=== PATIENT | female | born 1970 | race Hispanic/Latino ===

== ENCOUNTER 2019-12-28 20:23 | Emergency (ER) | payer BC, OTHER ==
[~2019-12-28] VITALS: Ht 162.6 cm; Wt 70.8 kg
== END 2019-12-28 22:02 | disposition home or self-care (01) ==
LOC: FSED 20:23
DX: R07.89 Other chest pain (principal); Z87.19 Personal history of other diseases of the digestive system
CPT/HCPCS: 80053; 82553; 84484; 85025; 93005; 99283

== ENCOUNTER → 2020-08-24 | Outpatient (CLI) | payer BC ==
--- NOTE | 2020-08-24 13:03 | Diagnostic Imaging Report ---
EXAMINATION: KNEE THREE VIEWS BILATERAL INDICATION: Bilateral knee pain COMPARISON: None FINDINGS: AP, oblique, and lateral images of both knees were obtained. Left knee: No acute fracture or dislocation. Alignment is anatomic. Multifocal metallic foreign bodies along the medial and posterior medial aspect of the knee and mild tricompartmental degenerative changes. Small suprapatellar joint effusion. Right knee: No acute fracture or dislocation. Alignment is anatomic. No substantial degenerative change or joint effusion. Soft tissues appear unremarkable. IMPRESSION: No acute osseous injury of either knee. Multifocal metallic foreign bodies along medial left knee soft tissues. Small left suprapatellar joint effusion and mild left knee tricompartmental degenerative changes. Signed by: Ganesh Hernandez MD on 08/24/2020 12:59 PM
== END ==
LOC: RAD 11:15
DX: M25.561 Pain in right knee (principal); M25.562 Pain in left knee

== ENCOUNTER 2020-10-14 11:15 | Outpatient (RCR) | payer BC | END 2020-10-24 | LOC: PT 11:15 | PROVIDERS: ATTEND Specialist | DX: M17.0 Bilateral primary osteoarthritis of knee (principal); M22.2X2 Patellofemoral disorders, left knee; M22.2X1 Patellofemoral disorders, right knee; M62.81 Muscle weakness (generalized); M25.562 Pain in left knee ==

== ENCOUNTER 2020-11-08 07:00 | Outpatient (RCR) | payer BC | END 2020-11-24 | LOC: PT 07:00 | PROVIDERS: ATTEND Specialist | DX: M22.2X1 Patellofemoral disorders, right knee (principal); M22.2X2 Patellofemoral disorders, left knee; M17.0 Bilateral primary osteoarthritis of knee ==

== ENCOUNTER 2022-02-14 12:08 | Emergency (ER) | payer BC ==
[~2022-02-14] VITALS: Ht 162.6 cm; Wt 70.8 kg
[2022-02-14] MEDS ORDERED: FAMOTIDINE 20 MG/2 ML VIAL IV STA (12:47)
[2022-02-14] MEDS ORDERED: ONDANSETRON HCL INJ 2MG/ML 2ML 2 MG/ML VIAL IV STA (12:47)
[2022-02-14] MEDS ORDERED: DICYCLOMINE HCL 20 MG TAB PO ONE (13:00)
[2022-02-14] MEDS ORDERED: SODIUM CHLORIDE 0.9% 1000ML 1,000 ML IV SCH (13:00)
[2022-02-14] MEDS ORDERED: DICYCLOMINE HCL 10 MG CAP ONE (13:11)
[2022-02-14] MEDS ORDERED: ONDANSETRON HCL INJ 2MG/ML 2ML 2 MG/ML VIAL ONE (13:11)
[2022-02-14] MEDS ORDERED: SODIUM CHLORIDE 0.9% 1000ML 1,000 ML ONE (13:11)
[2022-02-14] MEDS ORDERED: FAMOTIDINE 20 MG/2 ML VIAL IV ONE (13:11)
[2022-02-14] MEDS ORDERED: CEFTRIAXONE 1 GM in SODIUM CHLORIDE 0.9% 50ML 50 ML IV ONE (14:30)
[2022-02-14] MEDS ORDERED: CEFTRIAXONE 1 GM VIAL ONE (14:43)
[2022-02-14] MEDS ORDERED: ONDANSETRON ODT4 MG PO (15:41)
[2022-02-14] MEDS ORDERED: LEVSIN-SL0.125 MG SL (15:43)
[2022-02-14] MEDS ORDERED: CIPRO500 MG PO (15:44)
== END 2022-02-14 16:10 | disposition home or self-care (01) ==
LOC: FSED 12:36
DX: R11.2 Nausea with vomiting, unspecified (principal); K52.9 Noninfective gastroenteritis and colitis, unspecified; N39.0 Urinary tract infection, site not specified; I10 Essential (primary) hypertension; K21.9 Gastro-esophageal reflux disease without esophagitis; Z85.3 Personal history of malignant neoplasm of breast
CPT/HCPCS: 80048; 80076; 81003; 85025; 87086; 99284; J0696; J2405; J7030